=== PATIENT | female | born 1940 | race Caucasian/White ===

== ENCOUNTER 2019-06-01 05:50 | Observation (INO) | payer MEDICARE ==
[~2019-06-01] VITALS: Ht 167.6 cm; Wt 84.8 kg
[2019-06-01] MEDS ORDERED: ELIQUIS5 MG PO (06:16)
[2019-06-01] MEDS ORDERED: ATENOLOL50 MG PO (06:17)
[2019-06-01] MEDS ORDERED: VITAMIN D325 MC1 PO (06:17)
--- NOTE | 2019-06-01 08:35 | NUR ---
PT ARRIVED TO FLOOR ON STRETCHER. ABLE TO SELF TRANSFER TO BED. SPEECH NORMAL, STRENGTH AND FISHER POT NORMAL IN EACH EXTREMITIY. VISION PORTER EQUAL AND PERRLA INTACT. NO NYSTAGMUS NOTED, GAZE SMOOTH. PT ABLE TO SWALLOW THIN LIQUIDS EASILY WITHOUT CHOKING. PREFERS NO STRAWS. PT HAD ORAL SURGERY ON SUNDAY AND IS AFRAID OF DISLODGING CLOTS.
--- NOTE | 2019-06-01 14:15 | EKG ---
[facility] [address] [facility] [place], [place] [address] Signed Atrial fibrillation Abnormal ECG No previous ECGs available Confirmed by CORRIE TEE MD ([id number]) on 06/01/2019 2:15:10 PM Electronically Signed By: CORRIE TEE MD 06/01/19 1415 PATIENT NAME: CELESTINO REID Electrocardiogram DATE OF : 40 PHYSICIAN: CORRIE TEE MD REPORT #: [id number] REPORT IS CONFIDENTIAL AND NOT TO BE RELEASED WITHOUT AUTHORIZATION
--- NOTE | 2019-06-01 15:22 | NUR ---
REPORT RECIEVED FROM HARSHIL JORDAN.
--- NOTE | 2019-06-01 15:54 | NUR ---
Pt states her right eye vision is now normal other that some "vibration" like areas in the right which she states is much improved. She now states her DIAZ is very "mild" and rates it between a 2-3/10 which was a 7-8 on admit. She states that 2-3 is tolerable and that she has been "having these headaches awhile". She denies the need of anything at this time.
--- NOTE | 2019-06-01 16:39 | NUR ---
Pt denies any change in condition since I last spoke with her. She states she has been walking around in her room with her spouse and feels steady on her feet.
--- NOTE | 2019-06-01 16:40 | NUR ---
Pt has been using her IS.
--- NOTE | 2019-06-01 18:20 | NUR ---
Pt denies any DIAZ at this time. She states that she has cataracts with the right eye being worse than the left which is baseline for her. Will continue to monitor.
--- NOTE | 2019-06-01 19:48 | NUR ---
REPORT RECEIVED FROM DAY SHIFT RN. PT LYING IN BED, ALERT AND ORIENTED. PT DENIES PAIN OR HEADACHE AT THIS TIME. NO QUESTIONS OR CONCERNS. WHITE BOARD UPDATED. CALL LIGHT IN REACH.
--- NOTE | 2019-06-01 22:38 | NUR ---
EVENING ASSESSMENT COMPLETE. SCHEDULED MEDS GIVEN WITHOUT ISSUE. PT DENIES PAIN OR NAUSEA. NIH STROKE SCALE SCORE 0. PT ADMITTED TO INDPENDENTLY GOING TO THE BATHROOM AND WALKING AROUND ROOM. DENIES WEAKNESS OR DEFECITS. REMINDED PT TO USE NURSE CALL LIGHT WITH AMBULATION FOR SAFETY. NO FURTHER NEEDS AT THIS TIME. CALL LIGHT IN REACH.
--- NOTE | 2019-06-02 00:45 | NUR ---
PT RESTING IN BED WITH EYES CLOSED, NAD.
--- NOTE | 2019-06-02 03:12 | NUR ---
PT UP TO BR WITH MINIMAL SBA. GAIT STEADY. BACK TO BED, HODAN WELL. NIH STROKE SCALE 0. PT STATES VISION IS ALMOST BACK TO NORMAL EXCEPT "SOME PULSING" IN THE UPPER RIGHT FIELD OF VISION. PT DENIES PAIN/DIAZ OR NAUSEA. VS COMPLETE. NO FURTHER NEEDS AT THIST TRACY. CALL LIGHT IN REACH.
--- NOTE | 2019-06-02 06:00 | NUR ---
NIH STROKE SCALE SCORE 0. PT UP TO BR WITH MIN SBA, GAIT STEADY. AT THE SINK FOR SALT WATER RINSE R/T PREVIOUS DENTAL PROCEDURE. BACK TO BED, HODAN WELL. PT DENIES PAIN/DIAZ. NO DEFICITS NOTED. PT STATES VISION IS "ALMOST NORMAL". NO FURTHER NEEDS AT THIS TIME. CALL LIGHT IN REACH.
--- NOTE | 2019-06-02 06:30 | NUR ---
PT OFF FLOOR FOR MRI
--- NOTE | 2019-06-02 07:59 | NUR ---
BEDSIDE REPORT RECEIVED FROM LARISSA JORDAN. WHITE BOARD UPDATED. PATIENT AWAKE LYING ON RIGHT SIDE. ALERT AND ORIENTED. CALLS APPROPRIATELY. MRI DONE THIS MORNING. AWAITING RESULTS.
[2019-06-02] MEDS ORDERED: TUMS200 MG PO (09:06)
[2019-06-02] MEDS ORDERED: GLUCOSE4 GM PO (09:06)
--- NOTE | 2019-06-02 09:06 | NUR ---
MED REC COMPLETE
--- NOTE | 2019-06-02 09:30 | NUR ---
SPOKE AT LENGTH WITH PATIENT IN ROOM. PATIENT LIVES WITH , THEY BOTH DRIVE. SHE IS RETIRED BUT VERY ACTIVE AT [employer] AND IN [employer]. SHE TRAVELS EXTENSIVELY WITH THIS. SHE DOES NOT USE ANY DME FOR AMBULATION. SHE HAS A CPAP BUT HAS NOT USED IT FOR OVER A YEAR. SHE NEVER COULD GET IT TO WHERE IT WAS COMFORTABLE AND DID NOT FEEL IT HELPED HER. 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 SHE STATES SHE WAS SUPPOSED TO HAVE VALVE SURGERY 06/06/19 THIS WEEK, BUT IT IS ON HOLD DUE TO THE COVID VIRUS. SHE HAS BEEN IN TOUCH WITH HER FOREST NURSERY WORKER, DR UPTON AND HER SURGEON REGULARLY ON THIS. DISCUSSED POSSIBLE DISCHARGE, SHE FEELS VERY SAFE TO GO HOME. SHE FEELS THAT SHE WOULD HAVE HELP FROM HER IF SHE NEEDED ANYTHING. SHE TALKED ABOUT SOME TIPS THE OT TERRIE AND SHE WORKED ON WITH HER VISION. SHE HAS ADULT CHILDREN, HER CLOSEST SON IS IN [place]. SHE FEELS SHE HAS VERY GOOD SUPPORT AND IS OK TO GO HOME. DISCUSSED IMPORTANCE OF MONITORING ANY RETURNING S/S OR NEW S/S. DISCUSSED WHAT TO DO IF THIS HAPPENS. QUESTIONS ANSWERED. WILL FOLLOW NEEDED.
--- NOTE | 2019-06-02 11:28 | NUR ---
unable to assess patient this morning as she has had mirian Bueno; Merritt, spiritual care; Leandra, med surg supply chain procurement manager; in visiting her.
--- NOTE | 2019-06-02 12:28 | NUR ---
PT ALERT AND PREPPING FOR DC TODAY. SHE IS A PERSON OF [employer] AND FEELS A NEED TO RETURN TO SEE CMTE SHE IS ON FOR HER TENRIISM. PT IS DEAING WITH NICKIID-19 WELL. PT REQUESTED PRAYER
--- NOTE | 2019-06-02 13:08 | NUR ---
ROUNDED ON PATIENT. ATE 100% OF LUNCH. WATCHING NEWS ON TV NOW. DENIES ANY NEEDS AT THIS TIME. CALLING APPROPRIATELY WHEN GETTING UP TO BATHROOM.
[2019-06-02] MEDS ORDERED: PRAVASTATIN SOD40 MG PO (13:37)
== END 2019-06-02 16:15 | disposition home or self-care (01) ==
LOC: ED 05:50 → MS 05:51
PROVIDERS: ADMIT Internal Medicine
DX: I63.9 Cerebral infarction, unspecified (principal); H53.47 Heteronymous bilateral field defects; E04.1 Nontoxic single thyroid nodule; E78.5 Hyperlipidemia, unspecified; N18.3 Chronic kidney disease, stage 3 (moderate); I48.21 Permanent atrial fibrillation; G43.909 Migraine, unspecified, not intractable, without status migrainosus; Z88.2 Allergy status to sulfonamides; Z88.8 Allergy status to other drugs, medicaments and biological substances; Z88.1 Allergy status to other antibiotic agents
CPT/HCPCS: 70450; 70496; 70498; 70551; 80053; 80061; 83036; 85025; 85651; 93005; 93010; 96374; 96375; 97161; 97165; 99285-25; G0378; J1200; J1650; J1885; J2765; Q9967

== ENCOUNTER 2022-02-23 15:37 | Emergency (ER) | payer MEDICARE ==
[~2022-02-23] VITALS: Ht 167.6 cm; Wt 84.8 kg
[~2022-02-23 15:37] MED LIST: ATENOLOL50 MG PO; ELIQUIS5 MG PO; GLUCOSE4 GM PO; PRAVASTATIN SOD40 MG PO; TUMS200 MG PO; VITAMIN D325 MC1 PO
[2022-02-23] MEDS ORDERED: HYDRALAZINE HCL25 MG PO (17:50)
== END 2022-02-23 18:55 | disposition home or self-care (01) ==
LOC: ED 15:37
DX: U07.1 COVID-19 (principal); I48.91 Unspecified atrial fibrillation; N18.30 Chronic kidney disease, stage 3 unspecified; Z88.8 Allergy status to other drugs, medicaments and biological substances; Z88.2 Allergy status to sulfonamides; Z79.899 Other long term (current) drug therapy; Z79.01 Long term (current) use of anticoagulants
CPT/HCPCS: 36415; 80048; 87502; 99283; U0003

== ENCOUNTER 2024-04-02 16:51 | Emergency (ER) | payer MEDICARE ==
[~2024-04-02] VITALS: Ht 167.6 cm; Wt 88.5 kg
[~2024-04-02 16:51] MED LIST changes: +HYDRALAZINE HCL25 MG PO; +SOTALOL80 MG PO
[2024-04-02 17:36] LABS: BASOPHILS 4.2 % (0-2); EOSINOPHILS 5.6 % (0-6); HEMATOCRIT 38.1 % (35.0-50.0); HEMOGLOBIN 12.5 g/dL (12.0-18.0); MCH 29.8 (27-36); MCHC 32.7 g/dl (30-36); MCV 91.1 fl (81-99); MONOCYTES 7.2 % (0-12); PLATELET COUNT 186 K/uL (140-440); RBC 4.18 M/ul (4.3-5.7); RDW 14.6 (10.5-15.0)
[2024-04-02 17:46] LABS: ALBUMIN 3.7 g/dL (3.4-5.0); ALBUMIN/GLOBULIN RATIO 0.93 (1.1-2.4); ANION GAP 12.9 (7-21); BILIRUBIN, TOTAL 0.4 ng/dL (0.2-1.0); BUN/CREATININE RATIO 17.16 (6.0-28.6); CALCIUM 9.3 mg/dL (8.5-10.1); CREATININE, SERUM 1.34 mg/dL (0.55-1.02); POTASSIUM 3.9 mmol/L (3.5-5.1); PROTEIN, TOTAL 7.7 g/dL (6.4-8.2)
[2024-04-02 18:38] LABS: ERYTHROCYTE SEDIMENTATION RATE 32
[2024-04-02 19:08] VITALS: BP 166/73
== END 2024-04-02 19:09 | disposition home or self-care (01) ==
LOC: ED 16:51
PROVIDERS: Internal Medicine
DX: R51.9 Headache, unspecified (principal); I48.91 Unspecified atrial fibrillation; N18.30 Chronic kidney disease, stage 3 unspecified; Z95.0 Presence of cardiac pacemaker; Z86.73 Personal history of transient ischemic attack (TIA), and cerebral infarction without residual deficits; Z88.8 Allergy status to other drugs, medicaments and biological substances; Z88.2 Allergy status to sulfonamides; Z88.1 Allergy status to other antibiotic agents; Z79.01 Long term (current) use of anticoagulants; Z79.899 Other long term (current) drug therapy
CPT/HCPCS: 36415; 70450; 80053; 85025; 85651; 86140; 99284-25